=== PATIENT | male | born 2000 | race Two or more races ===

== ENCOUNTER 2021-09-22 11:52 | Emergency (ER) | payer OTHER, SELFPAY ==
[2021-09-22 11:54] VITALS: BP 120/79; PULSE 95; RESP 16; TEMP 37.2; O2SAT 93; BMI 17.4
--- NOTE | 2021-09-22 12:13 | EX.ED.DYSGE1 ---
HPI History of Present Illness Chief Complaint: Abn Labs Detail of Chief Complaint: Concern for low calcium Informant: patient Narrative Narrative: Patient presents to the emergency department with complaint of low calcium. Patient states that he had his calcium levels drawn 5 days ago and got his results today and was advised to come to the emergency department. Patient has history of hypothyroidism due to the fact that he has had a thyroidectomy secondary to thyroid cancer. Patient takes Calcitrol daily however over the summer he had been taking twice the dose that he is currently taking. Patient is from the country of [place] and sees an emergency medicine medical director there but is here for school and has no primary care physician locally. Patient complains of intermittent muscle cramping however after taking Calcitrol that seems to improve. Patient denies recent illness. Patient also on levothyroxine. Prior similar symptoms: Yes PFSH [facility] Medical History (Updated 09/22/21 @ 13:[address] Maury Jimenez, DO) Calcium deficiency Non-smoker Thyroid cancer Vitamin D deficiency Home Medications levothyroxine [Synthroid] 112.5 mcg PO DAILY 09/22/21 [History Last Taken Unknown] Allergy/AdvReac Type Severity Reaction Status Date / Time No Known Allergies Allergy Verified 09/22/21 11:54 Surgical History (Updated 09/22/21 @ 12:39 by Marco Gaitan) History of thyroidectomy Social History Smoking Status: Never smoker ROS [facility] ED Constitutional Constitutional ED: Reports systems reviewed and no addt'l complaints, except as documented; Denies body ache(s), change in weight or chills Eyes Eyes: Denies acute decrease in peripheral vision, change in vision, double vision or loss of vision ENT ENT ED: Reports none; Denies ear pain, lip swelling, loss taste/smell, neck pain, otalgia or sore throat Cardiovascular Cardiovascular: Reports none; Denies abdominal pain, chest pain with activity, leg edema, lightheadedness, palpitations, rapid heart rate or syncope Respiratory/Chest Respiratory/Chest: Reports none; Denies change in mental status, dry cough, dyspnea, hemoptysis, shortness of breath at rest or shortness of breath with exertion Gastrointestinal Gastrointestinal: Reports none; Denies abdominal pain, change in stool character, diarrhea, hematemesis, hematochezia, melena, rectal bleeding or vomiting Genitourinary Genitourinary ED: Reports none; Denies abdominal discomfort, anuria, dysuria, genital pain or polyuria Musculoskeletal Musculoskeletal: Reports none and other Details: Intermittent muscle cramping ; Denies arthralgias, back pain, difficulty walking, extremity pain, muscle weakness or myalgias Integumentary Reports none; Denies abscess or rash Neurologic Neurologic: Reports none; Denies abnormal gait, confusion, focal weakness, frequent falls, headache(s), loss of vision, numbness, paresthesias, radicular pain, vertigo or weakness Psychiatric Psychiatric: Reports systems reviewed and no addt'l complaints, except as documented and none; Denies behavioral changes, confusion, difficulty concentrating, hallucinations, suicidal ideation, tactile hallucinations or visual hallucinations Endocrine Endocrinology: Denies none, cold intolerance, excessive sweating, fatigue or heat intolerance Hematologic/Lymphatic Hematologic/Lymphatic: Reports none; Denies anemia, easy bleeding or easy bruising Allergic/Immunologic Allergic/Immunologic ED: Denies as per HPI, none, lip swelling, mouth swelling, throat swelling, tongue swelling or hives EXAM Physical Exam Const Vital Signs: 09/22/21 11:54 09/22/21 12:34 09/22/21 12:37 Temperature 98.9 F Temperature Source Temporal Pulse Rate 95 86 Respiratory Rate 16 16 Respiratory Effort Normal Respiratory Pattern Normal Blood Pressure 120/79 Blood Pressure Mean 92 Pulse Ox 93 98 Oxygen Delivery Method Room Air Room Air Positive well nourished and well developed General Appearance ED: well developed and NAD HEENT Reports TM's clear and moist mucous membranes HEENT Narrative: Patient has a old healed scar along the left side of the neck to the anterior portion of the neck from prior thyroidectomy. normocephalic and atraumatic; Negative for trauma or tenderness Tympanic Membrane ED: Yes TM's clear Eyes PERRL and EOMs intact bilaterally General Eye ED: Negative for pale conjunctiva or scleral icterus Neck no lymphadenopathy, supple and no JVD General: Negative for tenderness Chest Wall inspection of chest normal and palpation of chest normal Chest: Negative for tenderness Resp normal respiratory effort and clear to auscultation bilaterally Effort and Inspection: Negative for respiratory distress or pain with movement Auscultation: Negative for rhonchi, wheezes or diminished lung sounds Cardio regular rate, regular rhythm, S1 normal heart sound, S2 normal heart sound and no murmurs Peripheral Pulses: pulses 2+ throughout GI normal to inspection, nondistended, normoactive bowel sounds, soft to palpation, non-tender, non-distended and no masses Back/Spine no CVA tenderness and no thoracic nor lumbar tenderness Extremity normal to inspection General Extremety ED: Negative for edema General Extremity: Negative for edema Neuro oriented x3, CN's II-XII intact bilaterally, no sensory deficits noted and gait normal Sensorium / Orientation: awake, alert, oriented to person, oriented to place and oriented to time Motor Exam: strength 5/5 throughout and strength abnormal Psych mental status grossly normal Skin no rashes or lesions noted and no wounds MDM MDM MDM Narrative Medical decision making narrative: Patient's calcium level was 6.5 and it was 6.65 days ago. I did write for 2 g of calcium gluconate IV. Patient increase his oral Calcitrol to twice daily. I will refer to primary care physician business operations analyst for no doc as well as endocrinology for follow-up. Lab Data Attestation: I reviewed the patient's lab results. Labs: Laboratory Results - last 24 hr 09/22/21 12:25 Sodium 140 Potassium 3.9 Chloride 102 Carbon Dioxide 30.0 Anion Gap 8 BUN 7 Creatinine 0.78 Estim Creat Clear Calc 128.21 Est GFR (MDRD) Af Amer 163 Est GFR (MDRD) Non-Af 135 BUN/Creatinine Ratio 9.0 L Glucose 86 Calcium 6.5 L* Discharge Plan Triage Chief Complaint: Abn Labs ED Provider: Maury Jimenez Dx/Rx/DC Orders Clinical Impression: Hypocalcemia Instructions: ED Hypocalcemia (Adult) Prescriptions: No Action levothyroxine [Synthroid] 112 mcg Tablet 112.5 mcg PO DAILY RF: 0 Primary Care Provider: Care Physician,No Primary Referrals: Amarjit Feliz MD [STAFF PHYSICIAN] - 3-5 Days Carlos Armando MD [STAFF PHYSICIAN] - 3-5 Days Care Physician,No Primary [Primary Care Provider] - Activity Restrictions/Additional Instructions: Increase your Rocaltrol to twice daily. Disposition Disposition: Home, Self Care
[2021-09-22 12:34] VITALS: PULSE 86; RESP 16; O2SAT 98
[2021-09-22 12:48] LABS: Anion Gap 8 (5-15); BUN 7 mg/dL (7-18); Calcium,Total 6.5 mg/dL (8.5-10.1); Chloride 102 mmol/L (98-107); Creatinine, Serum 0.78 mg/dL (0.70-1.30); EST Glomerular Filtration Rate 135 mL/min (>60); Est Glom Filt Rate - Afr Amer 163 mL/min (>60); Estimated Creatinine Clearance 128.21 ml/min; Glucose 86 mg/dL (74-106); Potassium 3.9 mmol/L (3.5-5.1); Sodium Level 140 mmol/L (136-145)
[2021-09-22 13:36] VITALS: BP 130/80; PULSE 88; RESP 16; O2SAT 99
[2021-09-22 15:00] VITALS: BP 124/80; PULSE 77; RESP 18; O2SAT 98
[2021-09-22 15:55] VITALS: BP 122/70; PULSE 81; RESP 18; O2SAT 98
--- NOTE | 2021-09-22 15:57 | ED.RN ---
REVIEWED D/C INSTRUCTIONS, FOLLOW UP CARE, AND S/S THAT WOULD WARRANT A RETURN TO THE ED WITH PT. PT VERBALIZED AN UNDERSTANDING AND DENIES FURTHER QUESTIONS FOR THIS RN. PT SKIN P/W/D, RESP EVEN AND UNLABORED, PT A&O X 3, NO DISTRESS NOTED. PT AMBULATED OUT OF ED, GAIT STEADY.
== END 2021-09-22 16:00 | disposition home or self-care (01) ==
PROVIDERS: Emergency Provider Emergency Medicine
DX: E83.51 Hypocalcemia (principal); E89.0 Postprocedural hypothyroidism; Z79.890 Hormone replacement therapy; Z85.850 Personal history of malignant neoplasm of thyroid
CPT/HCPCS: 36415; 80048; 96365; 96366; 99284; A4216; J0610

== ENCOUNTER → 2021-10-04 16:22 | Outpatient (CLI) | payer OTHER, SELFPAY ==
[2021-10-04 18:38] LABS: Anion Gap 7 (5-15); BUN 8 mg/dL (7-18); BUN/Creat Ratio 8.6 RATIO (10-20); Chloride 104 mmol/L (98-107); Creatinine, Serum 0.93 mg/dL (0.70-1.30); EST Glomerular Filtration Rate 109 mL/min (>60); Est Glom Filt Rate - Afr Amer 132 mL/min (>60); Free T3 2.4 pg/mL (2.18-3.98); Glucose 79 mg/dL (74-106); Potassium 3.7 mmol/L (3.5-5.1); Sodium Level 141 mmol/L (136-145); Thyroid Stim Hormone (TSH) 1.79 uIU/mL (0.358-3.74)
[2021-10-07 13:27] LABS: PTHIN 2.1 pg/mL (18.4-80.1)
== END ==
PROVIDERS: PCP Family Medicine; Referring Provider Family Medicine; Visit Provider Family Medicine
DX: E03.9 Hypothyroidism, unspecified (principal); E83.51 Hypocalcemia
CPT/HCPCS: 36415; 80048; 83970; 84439; 84443; 84481

== ENCOUNTER → 2021-11-15 09:04 | Outpatient (CLI) | payer OTHER, SELFPAY ==
[2021-11-15 09:26] LABS: Absolute Lymphocyte Count 1.14 X10^3/uL (0.83-4.51); Absolute Neutrophil Count 3.3 X10^3/uL (2.0-7.7); Basophil# 0.06 X10^3/uL; Basophil% 1.2 % (0-1); Eosinophils% 1.9 % (0-5); Hematocrit 50.8 % (40-54); Hemoglobin 17.3 g/dL (13.0-16.5); Lymphocyte # 1.14 X10^3/ul (0.83-4.51); Lymphocyte % 21.9 % (19-41); Mean Corp Hgb Conc 34.1 g/dL (32-36); Mean Corpuscular Hgb 29.6 pg (27.0-32.0); Mean Corpuscular Volume 86.8 fL (80-94); Mean Platelet Vol. 9.5 fl (6.2-12.0); Monocyte# 0.54 X10^3/uL; Monocyte% 10.4 % (0-10); NRBC Flagged by Analyzer 0 % (0-5); Neutrophil # 3.34 X10^3/uL (2.7-7.7); Neutrophil % 64.2 % (47-70); Platelet Count 240 K/mm3 (150-450); RBC Distribution Width CV 12.4 % (11.6-14.6); RBC Distribution Width SD 39.2 fl (35.1-43.9); Red Blood Count 5.85 M/mm3 (4.6-6.2); White Blood Count 5.2 K/mm3 (4.4-11.0)
[2021-11-15 09:38] LABS: Erythrocyte Sedimentation Rate 2 mm/hr (0-20)
[2021-11-15 09:49] LABS: ALB/GLOB Ratio 1.3 RATIO (0.9-2.4); AST(SGOT) 17 U/L (15-37); Alanine Aminotransfer ALT/SGPT 20 U/L (16-61); Albumin, Serum 4.7 g/dL (3.2-5.0); Alkaline Phosphatase 43 U/L (45-117); Anion Gap 4 (5-15); BUN 8 mg/dL (7-18); BUN/Creat Ratio 9.3 RATIO (10-20); CRP < 2.90 mg/L (0.0-3.0); Calcium,Total 8.2 mg/dL (8.5-10.1); Chloride 106 mmol/L (98-107); Creatinine, Serum 0.86 mg/dL (0.70-1.30); EST Glomerular Filtration Rate 119 mL/min (>60); Est Glom Filt Rate - Afr Amer 144 mL/min (>60); Globulin 3.5 g/dL (2.2-4.2); Glucose 96 mg/dL (74-106); Potassium 3.9 mmol/L (3.5-5.1); Protein, Total 8.2 g/dL (6.4-8.2); Sodium Level 141 mmol/L (136-145)
[2021-11-15 10:16] LABS: PTHIN 2.2 pg/mL (18.4-80.1)
[2021-11-18 13:42] LABS: Gastrin, Serum 10 pg/mL (0-115)
== END ==
PROVIDERS: PCP Family Medicine; Referring Provider Internal Medicine Gastroenterology; Visit Provider Internal Medicine Gastroenterology
DX: C73 Malignant neoplasm of thyroid gland (principal); E89.2 Postprocedural hypoparathyroidism
CPT/HCPCS: 36415; 80053; 82941; 83970; 85025; 85652; 86140

== ENCOUNTER 2021-12-24 15:13 | Outpatient (CLI) | payer OTHER, SELFPAY | END 2021-12-24 23:59 | disposition short-term general hospital (02) | LOC: IMMUN 01-01 15:13 | PROVIDERS: Visit Provider Family Medicine | DX: Z23 Encounter for immunization (principal) ==

== ENCOUNTER 2022-01-09 16:30 | Outpatient (CLI) | payer OTHER, SELFPAY ==
--- NOTE | 2022-01-09 16:32 | CT_ITS ---
STUDY: CT SOFT TISSUE NECK WITH CONTRAST REASON FOR EXAM: Male, 21 years old. THYROID CARCINOMA RADIATION DOSAGE (If Supplied By Facility): CTDIvol = ( 9.47 ) mGy, DLP = ( 622.54 ) mGycm TECHNIQUE: The patient was scanned in a multi-detector CT scanner. High resolution transaxial imaging was performed following intravenous administration of IV 75mL Isovue-370. Sagittal and coronal images were reconstructed. Individualized dose optimization techniques were used for this CT. COMPARISON: None. FINDINGS: Likely postsurgical changes at the level of the thyroid gland with subtle narrowing of the subglottic airway and a air collection noted lateral to the trachea which joins the esophagus at the level of the aortic arch. Normal bilateral parotid glands. Normal bilateral custom studio coordinator spaces. Normal bilateral parapharyngeal spaces. Normal bilateral carotid spaces. Normal bilateral sublingual and submandibular glands and spaces. Normal visualized nasopharynx. Normal retropharyngeal space. Normal perivertebral space. Normal visualized bilateral faucial tonsils. The visualized tongue, tongue base and oropharynx are normal. The visualized cervical lymph nodes (levels I-) are within normal size limits, and maintain normal morphology. There is no demonstrated solid or cystic mass lesion. There is no abnormal contrast enhancement. Normal epiglottis, bilateral vallecula and hypopharynx. The pre-epiglottic and paraglottic adipose spaces are normal. Normal visualized bilateral piriform sinuses, aryepiglottic folds, vocal cords, and arytenoid-cricoid articulations. Normal subglottic trachea. There is been a previous thyroidectomy. Normal visualized pulmonary apices. Normal visualized paranasal sinuses. Normal visualized cervical spine. CT/Soft Tissue Neck WITH Contrast IMPRESSION: Postsurgical changes noted from thyroidectomy. No acute findings No suspicious enhancing lesion, no disruption of the fat planes, no suspicious adenopathy Electronically Signed: Pancho Mahan MD at 17:19 EST ,
--- NOTE | 2022-01-09 16:32 | CT_ITS ---
STUDY: CT CHEST WITH CONTRAST REASON FOR EXAM: Male, 21 years old. THYROID CARCINOMA RADIATION DOSAGE (If Supplied By Facility): CTDIvol = ( 9.47 ) mGy, DLP = ( 622.54 ) mGycm TECHNIQUE: Transaxial imaging was performed following intravenous administration of IV 75mL Isovue-370. Multiplanar coronal and sagittal images were reformatted. Individualized dose optimization techniques were used for this CT. COMPARISON: None. FINDINGS: There is soft tissue air lateral to the trachea but it appears to connect to the esophagus just above the level of the aortic arch. This may be related to patient''s thyroid surgery. The lungs are normal. There is no demonstrated pleural abnormality. Normal heart and pericardium. Normal mediastinum. Normal hilar regions. Normal enhanced pulmonary arteries. Normal aorta arch and descending thoracic aorta. Normal osseous structures. There is no demonstrated abnormality of the visualized upper abdomen. CT/Chest WITH Contrast IMPRESSION: No acute findings Air to the left of the trachea and the lower neck likely is from postsurgical change after thyroidectomy Electronically Signed: Pancho Mahan MD at 17:17 EST ,
== END 2022-01-09 23:59 | disposition home or self-care (01) ==
PROVIDERS: PCP Family Medicine; Visit Provider Internal Medicine
DX: C73 Malignant neoplasm of thyroid gland (principal)
CPT/HCPCS: 70491; 71260; Q9967

== ENCOUNTER 2022-01-16 15:24 | Outpatient (CLI) | payer OTHER, SELFPAY ==
--- NOTE | 2022-01-16 15:39 | MRI_ITS ---
STUDY: MRI CERVICAL SPINE WITH AND WITHOUT CONTRAST REASON FOR EXAM: Male, 21 years old. MEDUALLARY THYROID CARCINOMA, ELEVATED CALCITONIN TECHNIQUE: Standardized fat and water weighted pulse sequences were obtained in the sagittal and axial following administration of IV Yes YES. COMPARISON: None FINDINGS: Normal foramen magnum and brainstem-cervical cord junction. Normal cervical lordosis. Normal vertebral bodies and posterior osseous elements. C2-3: Normal endplates. Normal disc height, signal and morphology. Normal central canal and intervertebral neural foramina. C3-4: Normal endplates. Normal disc height, signal and morphology. Normal central canal and intervertebral neural foramina. C4-5: Normal endplates. Normal disc height, signal and morphology. Normal central canal and intervertebral neural foramina. C5-6: Normal endplates. Normal disc height, signal and morphology. Normal central canal and intervertebral neural foramina. C6-7: Normal endplates. Normal disc height, signal and morphology. Normal central canal and intervertebral neural foramina. C7-T1: Normal endplates. Normal disc height, signal and morphology. Normal central canal and intervertebral neural foramina. Normal cervical cord. MRI/Spine Cervical W/WO Contrast IMPRESSION: Unremarkable unenhanced and enhanced MR examination of the cervical spine. Electronically Signed: Faith Gil MD at 10:30 [facility] ,
--- NOTE | 2022-01-16 15:40 | MRI_ITS ---
EXAM: MR PELVIS WITHOUT AND WITH INTRAVENOUS CONTRAST CLINICAL INDICATION: MEDUALLARY THYROID CARCINOMA, ELEVATED CALCITONIN TECHNIQUE: Multiplanar and multisequence MR images of the pelvis without and with intravenous contrast. This report was created using [employer] report [email or web address] technology. CONTRAST: IV 13 CC DOTAREM COMPARISON: None. FINDINGS: BOWEL: No inflammatory or obstructive changes of bowel. APPENDIX: No evidence of acute appendicitis. INTRAPERITONEAL SPACE: No free fluid. No free pelvic fluid. BLADDER: Bladder is unremarkable. REPRODUCTIVE: Unremarkable as visualized. No mass. BONES/JOINTS: Visualized spine is unremarkable. No suspicious lytic or blastic abnormality. SOFT TISSUES: Muscles are normal. No pelvic wall hernia. LYMPH NODES: No adenopathy. OTHER FINDINGS: No concerning marrow signal alterations. No other significant pathology. MRI/Pelvis W/WO Contrast IMPRESSION: No evidence for adenopathy or neoplasm. Electronically Signed: Byron Smalls MD at 4:50 EST ,
--- NOTE | 2022-01-16 15:41 | MRI_ITS ---
EXAM: MR ABDOMEN WITHOUT AND WITH INTRAVENOUS CONTRAST CLINICAL INDICATION: MEDUALLARY THYROID CARCINOMA, ELEVATED CALCITONIN TECHNIQUE: Multiplanar and multisequence MR images of the abdomen without and with intravenous contrast. This report was created using [employer] report [employer] technology. CONTRAST: 13ML IV DOTAREM COMPARISON: None. FINDINGS: LOWER THORAX: Unremarkable. No pleural effusion. LIVER: No liver lesions. GALLBLADDER AND BILE DUCTS: Unremarkable. No gallstones. No gallbladder distention or wall edema. No intra- or extrahepatic biliary ductal dilation. PANCREAS: No pancreatic masses. SPLEEN: Unremarkable. Normal size without focal cystic or solid mass. ADRENALS: No adrenal masses. KIDNEYS AND URETERS: Kidneys are unremarkable. Normal renal size and position. No hydronephrosis. STOMACH AND BOWEL: No inflammatory changes of bowel or bowel obstruction. INTRAPERITONEAL SPACE: No free air or free fluid. VASCULATURE: Unremarkable. Abdominal aorta is non-dilated. LYMPH NODES: No adenopathy. OTHER FINDINGS: No unusual enhancement. MRI/MRI Abd WITH and W/O Contrast IMPRESSION: No evidence for adenopathy or neoplasm. Electronically Signed: Byron Smalls MD at 4:48 EST ,
== END 2022-01-16 23:59 | disposition home or self-care (01) ==
PROVIDERS: Visit Provider Internal Medicine
DX: C73 Malignant neoplasm of thyroid gland (principal)
CPT/HCPCS: 72156; 72197; 74183; A9575

== ENCOUNTER 2022-01-21 15:27 | Outpatient (CLI) | payer OTHER, SELFPAY ==
--- NOTE | 2022-01-21 15:42 | MRI_ITS ---
STUDY: MRI LUMBAR SPINE WITH AND WITHOUT CONTRAST REASON FOR EXAM: Male, 21 years old. THYROID CARCINOMA TECHNIQUE: Standardized fat and water weighted pulse sequences were obtained in the sagittal and axial planes. IV yes yes was administered for the contrast portion of the examination. COMPARISON: 01/16/2022 FINDINGS: T12-L1: Normal endplates. Normal disc height, hydration and morphology. Normal bilateral facet joints. Normal central canal and bilateral lateral recesses. Normal bilateral intervertebral neural foramina. Normal lumbar lordosis. There is no substantial scoliosis. Normal conus medullaris that terminates at the L1 level. L1-2: Normal endplates. Normal disc height, hydration and morphology. Normal bilateral facet joints. Normal central canal and bilateral lateral recesses. Normal bilateral intervertebral neural foramina. L2-3: Normal endplates. Normal disc height, hydration and morphology. Normal bilateral facet joints. Normal central canal and bilateral lateral recesses. Normal bilateral intervertebral neural foramina. L3-4: Normal endplates. Normal disc height, hydration and morphology. Normal bilateral facet joints. Normal central canal and bilateral lateral recesses. Normal bilateral intervertebral neural foramina. L4-5: Normal endplates. Normal disc height, hydration and morphology. Normal bilateral facet joints. Normal central canal and bilateral lateral recesses. Normal bilateral intervertebral neural foramina. L5-S1: Normal endplates. Small broad-based disc bulge. Normal bilateral facet joints. Normal central canal and bilateral lateral recesses. Normal bilateral intervertebral neural foramina. 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 Normal visualized paraspinous soft tissue structures. 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 There is no evidence of metastatic disease in the lumbar spine. Electronically Signed: Smita Ogden MD at 4:08 EST ,
--- NOTE | 2022-01-21 15:42 | MRI_ITS ---
STUDY: MRI BRAIN WITH AND WITHOUT CONTRAST REASON FOR EXAM: Male, 21 years old. THYROID CARCINOMA WITH ELEVATED CALCITONIN TECHNIQUE: Standardized multiplanar fat and water weighted pulse sequences were obtained. IV dotarem 13ml was administered for the contrast portion of the examination. COMPARISON: None. FINDINGS: Normal size of the ventricles and extra-axial spaces for the patient''s age. Normal white matter tracts of the supratentorial brain. Normal bilateral basal ganglia. Normal thalami. There is no extra-axial fluid accumulation. Normal flow voids within the major intracranial circulation suggesting patency by spin echo criteria. Normal venous enhancement. There is no enhancing intra-axial or extra-axial abnormality. Normal sella turcica, pituitary gland, infundibular stalk, optic chiasm and hypothalamus. Normal tectal plate and pineal gland. Normal midbrain, yonis and medulla. Normal cerebellum. Normal basal cisterns. Normal bilateral temporal bones. Normal bilateral internal auditory canals. No demonstrated orbital abnormality, within the constraints of a routine brain study. Normal visualized paranasal sinuses. Normal calvarium and skull base. Normal visualized soft tissue structures. Normal visualized upper cervical spine. MRI/Brain W/WO Contrast IMPRESSION: Normal unenhanced and enhanced MRI of the brain. Electronically Signed: Smita Ogden MD at 7:30 EST ,
--- NOTE | 2022-01-21 15:42 | MRI_ITS ---
STUDY: MRI THORACIC SPINE WITH AND WITHOUT CONTRAST REASON FOR EXAM: Male, 21 years old. THYROID CARCINOMA TECHNIQUE: IV dotarem 13ml was administered for the contrast portion of the examination. COMPARISON: 01/09/2022 FINDINGS: Normal kyphosis of the thoracic spine. There is no substantial scoliosis. T1-2, T2-3, T3-4, T4-5, T5-6, T6-7, T7-8, T8-9, T9-10, T10-11, T11-12: Normal endplates. Normal disc hydration, heights and morphology of the corresponding intervertebral discs. Normal central canal and intervertebral neural foramina at the corresponding levels. Normal visualized thoracic cord. 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 The soft tissue structures are unremarkable. There is no enhancing abnormality. MRI/Spine Thoracic W/WO Contrast IMPRESSION: No evidence of metastatic lesions in thoracic spine the thoracic spine. Electronically Signed: Smita Ogden MD at 1:40 EST ,
== END 2022-01-21 23:59 | disposition home or self-care (01) ==
PROVIDERS: Visit Provider Internal Medicine
DX: C73 Malignant neoplasm of thyroid gland (principal)
CPT/HCPCS: 70553; 72157; 72158; A9575

== ENCOUNTER 2022-03-10 07:59 | Outpatient (CLI) | payer OTHER, SELFPAY | END 2022-03-10 23:59 | disposition home or self-care (01) | LOC: EN 07:59 | PROVIDERS: Visit Provider Internal Medicine Gastroenterology | DX: Z53.9 Procedure and treatment not carried out, unspecified reason (principal) ==

== ENCOUNTER → 2022-03-27 | Outpatient (CLI) | payer OTHER, SELFPAY ==
[2022-03-27 17:14] LABS: Absolute Lymphocyte Count 0.92 X10^3/uL (0.83-4.51); Absolute Neutrophil Count 5.4 X10^3/uL (2.0-7.7); Basophil# 0.08 X10^3/uL; Basophil% 1.1 % (0-1); Eosinophil# 0.06 X10^3/uL; Eosinophils% 0.8 % (0-5); Hematocrit 50.7 % (40-54); Hemoglobin 17.5 g/dL (13.0-16.5); Lymphocyte # 0.92 X10^3/ul (0.83-4.51); Lymphocyte % 12.7 % (19-41); Mean Corp Hgb Conc 34.5 g/dL (32-36); Mean Corpuscular Hgb 30.9 pg (27.0-32.0); Mean Corpuscular Volume 89.4 fL (80-94); Mean Platelet Vol. 9.8 fl (6.2-12.0); Monocyte# 0.78 X10^3/uL; Monocyte% 10.7 % (0-10); NRBC Flagged by Analyzer 0 % (0-5); Neutrophil % 74.3 % (47-70); Platelet Count 260 K/mm3 (150-450); RBC Distribution Width CV 12.7 % (11.6-14.6); RBC Distribution Width SD 41.4 fl (35.1-43.9); Red Blood Count 5.67 M/mm3 (4.6-6.2); White Blood Count 7.3 K/mm3 (4.4-11.0)
[2022-03-27 17:36] LABS: Erythrocyte Sedimentation Rate < 1 mm/hr (0-20)
[2022-03-27 17:55] LABS: ALB/GLOB Ratio 1.5 RATIO (0.9-2.4); AST(SGOT) 64 U/L (15-37); Alanine Aminotransfer ALT/SGPT 38 U/L (16-61); Albumin, Serum 4.7 g/dL (3.2-5.0); Alkaline Phosphatase 39 U/L (45-117); Anion Gap 7 (5-15); BUN 8 mg/dL (7-18); BUN/Creat Ratio 10.1 RATIO (10-20); CRP < 2.90 mg/L (0.0-3.0); Calcium,Total 7.1 mg/dL (8.5-10.1); Chloride 103 mmol/L (98-107); Creatinine, Serum 0.79 mg/dL (0.70-1.30); EST Glomerular Filtration Rate 131 mL/min (>60); Est Glom Filt Rate - Afr Amer 158 mL/min (>60); Globulin 3.1 g/dL (2.2-4.2); Glucose 97 mg/dL (74-106); LDH 250 U/L (87-241); Potassium 3.7 mmol/L (3.5-5.1); Protein, Total 7.8 g/dL (6.4-8.2); Sodium Level 139 mmol/L (136-145); Thyroid Stim Hormone (TSH) 2.99 uIU/mL (0.358-3.74)
[2022-03-29 08:10] LABS: HEPATITIS B SURFACE AG Negative (Negative); Hepatitis A IgM Antibody Negative (Negative); Hepatitis B Core AB IgM Negative (Negative)
[2022-03-29 09:40] LABS: Hep C Antibodies 0.1 s/co ratio (0.0-0.9)
[2022-03-31 15:10] LABS: Anti-Centromere B Ab <0.2 AI (0.0-0.9); Anti-Chromatin <0.2 AI (0.0-0.9); Anti-Jo <0.2 AI (0.0-0.9); Anti-Scleroderma-70 AB <0.2 AI (0.0-0.9); RNP Ab 0.2 AI (0.0-0.9); SJOGREN'S Anti-SS-A test < 0.2 AI (0.0-0.9); SJOGREN'S Anti-SS-B test < 0.2 AI (0.0-0.9); Smith Ab <0.2 AI (0.0-0.9)
[2022-03-31 16:03] LABS: Anti-dsDNA Ab <1 IU/mL (0-9)
[2022-04-06 04:06] LABS: Albumin 4.6 g/dL (2.9-4.4); Alpha-1-Globulins 0.3 g/dL (0.0-0.4); Alpha-2-Globulins 0.5 g/dL (0.4-1.0); Endomysial Antibody IgA Negative (Negative); Gamma Globulin 1.1 g/dL (0.4-1.8); Immunoglobulin A 231 mg/dL (90-386); Immunoglobulin E 636 IU/mL (6-495); Immunoglobulin G 1047 mg/dL (603-1613); Immunoglobulin M 64 mg/dL (20-172); PROEL- TOTAL PROTEIN 7.5 g/dL (6.0-8.5)
[2022-04-07 12:49] LABS: Angiotensin Convert Enzyme 49 U/L (14-82); Cytoplasmic Ab (C-ANCA) <1:20 titer (Neg:<1:20); Perinuclear Ab (P-ANCA) <1:20 titer (Neg:<1:20); t-Transglutaminase IgA <2 U/mL (0-3)
== END | disposition home or self-care (01) ==
LOC: LAB 15:46
PROVIDERS: Internal Medicine Gastroenterology; Referring Provider Internal Medicine; Visit Provider Internal Medicine
DX: C73 Malignant neoplasm of thyroid gland (principal); R14.0 Abdominal distension (gaseous); D63.0 Anemia in neoplastic disease; K92.2 Gastrointestinal hemorrhage, unspecified; R79.89 Other specified abnormal findings of blood chemistry; R19.7 Diarrhea, unspecified
CPT/HCPCS: 36415; 80053; 80074; 82164; 82784; 82785; 83516; 83615; 84165; 84443; 85025; 85652; 86140; 86225; 86235; 86255; 86256; 86334

== ENCOUNTER → 2022-03-28 | Outpatient (CLI) | payer OTHER, SELFPAY ==
[2022-04-04 08:41] LABS: Giardia Lamblia, Stool EIA Negative (Negative); Pancreatic Elastase, Fecal > 500 (>200)
== END | disposition home or self-care (01) ==
LOC: LAB 12:45
PROVIDERS: Referring Provider Internal Medicine Gastroenterology; Visit Provider Internal Medicine Gastroenterology
DX: R19.7 Diarrhea, unspecified (principal)
CPT/HCPCS: 82653; 83630; 83993; 87177; 87209; 87329; 87493; 87506

== ENCOUNTER → 2022-04-11 | Outpatient (CLI) | payer OTHER, SELFPAY ==
--- NOTE | 2022-04-11 08:51 | US_ITS ---
STUDY: ABDOMINAL ULTRASOUND - ELASTOGRAPHY REASON FOR VISIT: Male, 21 years old. History of gastrointestinal hemorrhage. Abnormal liver function tests. TECHNIQUE: Liver stiffness measurements were obtained on a [employer] RS 85 ultrasound machine using a CA 1-7 probe following the SRU guidelines. 3 measurements were obtained using a 2-D-SWE method. The IQR/M was 12% suggesting a quality data set. TECHNICAL QUALITY: Adequate. COMPARISON: Comparison is made with prior study done earlier in the day. FINDINGS: Liver: Hepatomegaly. Median liver stiffness measured 4.9 kPa. US/Elastography Parenchyma/Organ IMPRESSION: Liver stiffness measures 4.9 kPa compatible with F0-F1 (Normal to mild liver fibrosis) Metavir score. Electronically Signed: Honorio Maxwell MD at 10:34 EDT ,
--- NOTE | 2022-04-11 08:51 | US_ITS ---
STUDY: ABDOMINAL ULTRASOUND - RIGHT UPPER QUADRANT REASON FOR VISIT: Male, 21 years old elevated lft -- gastro hemorrhage . History of thyroid cancer. TECHNIQUE: Ultrasound evaluation of the right upper quadrant was performed with real-time and static rodriguez-scale imaging. TECHNICAL QUALITY: Adequate. COMPARISON: None. FINDINGS: Liver: The liver is enlarged and measures 18.5 cm. There is normal echogenicity of the liver. The bile ducts are within normal limits. There is hepatic color flow. The direction of portal flow is hepatopetal. There is no demonstrated mass lesion. Gallbladder: Normal distended gallbladder. The gallbladder wall measures 1.5 mm. There is a negative sonographic Schwartz''s sign. There is no pericholecystic fluid. There are no gallstones. Common Bile Duct (C.B.D.): The common bile duct measures 3.0 mm. Pancreas: Normal size of the head, body and tail of the pancreas. There is normal echogenicity of the pancreas. There is no demonstrated pancreatic mass or cyst. Right Kidney: Normal size of the right kidney. The right kidney measures 11.7 cm x 5.7 cm x 6.8 cm. Normal renal cortex. The right cortex measures 2.0 cm. There is no demonstrated renal mass or cyst. There is no right hydronephrosis. US/Abdomen Limited IMPRESSION: Hepatomegaly. Electronically Signed: Honorio Maxwell MD at 10:32 EDT ,
== END | disposition home or self-care (01) ==
LOC: US 08:50
PROVIDERS: Referring Provider Internal Medicine Gastroenterology; Visit Provider Internal Medicine Gastroenterology
DX: K92.2 Gastrointestinal hemorrhage, unspecified (principal); R79.89 Other specified abnormal findings of blood chemistry
CPT/HCPCS: 76705; 76981

== ENCOUNTER → 2022-05-31 | Outpatient (CLI) | payer OTHER, SELFPAY ==
[2022-05-31 11:37] LABS: Absolute Neutrophil Count 4.4 X10^3/uL (2.0-7.7); Basophil# 0.08 X10^3/uL; Basophil% 1.3 % (0-1); Eosinophil# 0.08 X10^3/uL; Eosinophils% 1.3 % (0-5); Hematocrit 48.7 % (40-54); Hemoglobin 17.4 g/dL (13.0-16.5); Lymphocyte % 15.1 % (19-41); Mean Corp Hgb Conc 35.7 g/dL (32-36); Mean Corpuscular Volume 86.8 fL (80-94); Mean Platelet Vol. 10.1 fl (6.2-12.0); Monocyte# 0.53 X10^3/uL; Monocyte% 8.9 % (0-10); NRBC Flagged by Analyzer 0 % (0-5); Neutrophil # 4.35 X10^3/uL (2.7-7.7); Neutrophil % 73.1 % (47-70); Platelet Count 258 K/mm3 (150-450); RBC Distribution Width CV 12.8 % (11.6-14.6); RBC Distribution Width SD 40.3 fl (35.1-43.9); Red Blood Count 5.61 M/mm3 (4.6-6.2)
[2022-05-31 11:56] LABS: CPK Total, Creatine Kinase 75 U/L (39-308); CRP < 2.90 mg/L (0.0-3.0); LDH 179 U/L (87-241)
[2022-05-31 12:03] LABS: Erythrocyte Sedimentation Rate < 1 mm/hr (0-20)
[2022-06-02 08:35] LABS: HIV - WCH Non-Reactive (Nonreactive)
[2022-06-06 00:08] LABS: Immunoglobulin A 226 mg/dL (90-386); Immunoglobulin E 1646 IU/mL (6-495); Immunoglobulin G 978 mg/dL (603-1613)
[2022-06-10 13:58] LABS: Immunoglobulin M 62 mg/dL (20-172)
== END | disposition home or self-care (01) ==
PROVIDERS: Referring Provider Internal Medicine Gastroenterology; Visit Provider Internal Medicine Gastroenterology
DX: R14.0 Abdominal distension (gaseous) (principal); R19.7 Diarrhea, unspecified; R79.89 Other specified abnormal findings of blood chemistry
CPT/HCPCS: 36415; 82550; 82784; 82785; 83615; 85025; 85652; 86140; 86703

== ENCOUNTER → 2022-06-03 | Outpatient (CLI) | payer OTHER, SELFPAY ==
[2022-06-05 15:16] LABS: Calprotectin, Stool <16 ug/g (0-120)
[2022-06-10 13:59] LABS: Giardia Lamblia, Stool EIA Negative (Negative); Pancreatic Elastase, Fecal 397 (>200)
== END | disposition home or self-care (01) ==
LOC: LAB 06:52 → LABSPEC 07:00
PROVIDERS: Visit Provider Internal Medicine Gastroenterology
DX: R19.7 Diarrhea, unspecified (principal); R14.0 Abdominal distension (gaseous); K58.9 Irritable bowel syndrome, unspecified
CPT/HCPCS: 82653; 83630; 83993; 87177; 87209; 87329; 87493; 87506

== ENCOUNTER → 2022-11-27 | Outpatient (CLI) | payer OTHER, SELFPAY ==
[2022-11-27 12:12] LABS: T4 Free Direct 0.93 ng/dL (0.76-1.46)
== END | disposition home or self-care (01) ==
LOC: LAB 11:12
PROVIDERS: Visit Provider Internal Medicine
DX: C73 Malignant neoplasm of thyroid gland (principal)
CPT/HCPCS: 36415; 84439; 84443

== ENCOUNTER 2023-04-18 14:38 | Emergency (ER) | payer OTHER, SELFPAY ==
[2023-04-18 14:39] VITALS: BP 104/79; PULSE 105; RESP 16; TEMP 36.6; O2SAT 99
--- NOTE | 2023-04-18 14:59 | EKG12_ITS ---
Test Reason : ABNORMAL LAB Blood Pressure : / mmHG Vent. Rate : 093 BPM Atrial Rate : 093 BPM P-R Int : 130 ms QRS Dur : 092 ms QT Int : 372 ms P-R-T Axes : 077 033 -07 degrees QTc Int : 462 ms Normal sinus rhythm Nonspecific T wave abnormality Abnormal ECG Confirmed by ELDER SINGH, LISA ([id number]), web content editor BRANDON FERNANDEZ ([id number]) on 04/20/2023 11:21:20 AM Referred By: Confirmed By:LISA FRIEDMAN MD
--- NOTE | 2023-04-18 15:02 | EDS_ITS ---
HPI History of Present Illness Chief Complaint: Abn Labs Informant: patient Narrative Narrative: Patient presents to the ED after being called for abnormal labs obtained 2 days ago. History of medullary thyroid carcinoma total thyroidectomy 8 years ago in [place]. He is on levothyroxine 125 he is on Calcitrol he is on vitamin D. He states will get his blood work drawn every 6 months. He has a new doctor, had blood work drawn and was told is low. On his phone ionized calcium 0.77. He states he has chronically been low since his surgery he has not been symptomatic he has continue his medicines and did not think anything of it. Denies any muscle cramping any paresthesia is any palpitations or weakness. Labs were reviewed on his phone through [employer] with calcium being 0.77. He had a normal T3, normal vitamin D levels in range. [facility] Medical History Calcium deficiency Diarrhea Hormone deficiency Medullary thyroid carcinoma Non-smoker Parathyroid dysfunction Postsurgical hypoparathyroidism Thyroid cancer Vitamin D deficiency Home Medications levothyroxine 100 mcg tablet 100 mcg PO DAILY #90 tabs 01/02/22 [Rx Last Taken Unknown] calcitriol 0.5 mcg capsule 0.5 mcg PO BID #180 caps 07/04/22 [Rx Last Taken Unknown] Allergy/AdvReac Type Severity Reaction Status Date / Time No Known Allergies Allergy Verified 04/18/23 14:41 Surgical History History of thyroidectomy Social History Smoking Status: Never smoker alcohol intake: current alcohol intake frequency: 0-2 drinks per day substance use type: does not use what type of physical activity do you participate in: none ROS ROS ED Constitutional Constitutional ED: Denies chills, fever(s) or sweats Eyes Eyes: Denies change in vision ENT ENT ED: Denies dysphagia or sore throat Cardiovascular Cardiovascular: Denies chest pain, leg edema, palpitations or racing heartbeat Respiratory/Chest Respiratory/Chest: Denies cough, dyspnea or dyspnea on exertion Gastrointestinal Gastrointestinal: Denies abdominal pain, diarrhea, nausea or vomiting Genitourinary Genitourinary ED: Denies dysuria, hematuria or urinary frequency Musculoskeletal Musculoskeletal: Denies back pain, extremity pain or neck pain Integumentary Denies rash or wounds Neurologic Neurologic: Denies headache(s), paresthesias or weakness EXAM Physical Exam Const Vital Signs: 04/18/23 14:39 04/18/23 15:28 04/18/23 17:08 Temperature 98 F Temperature Source Temporal Pulse Rate 105 H Respiratory Rate 16 Respiratory Effort Normal Non-Labored Respiratory Pattern Normal Blood Pressure 104/79 Blood Pressure Mean 87 Pulse Ox 99 Oxygen Delivery Method Room Air Room Air Positive well nourished and well developed General Appearance ED: well developed and NAD HEENT Reports moist mucous membranes normocephalic and atraumatic Eyes PERRL, EOMs intact bilaterally and conjunctivae normal General Eye ED: Yes normal appearance of both eyes Neck no lymphadenopathy and supple General: Negative for tenderness Chest Wall Chest: Negative for tenderness Resp normal respiratory effort and normal air movement Effort and Inspection: symmetric chest movement; Negative for respiratory distress Cardio regular rate, regular rhythm and no murmurs Peripheral Pulses: pulses 2+ throughout GI normal to inspection, nondistended, normoactive bowel sounds and non-tender Palpation: Negative for guarding or rebound tenderness present Back/Spine no CVA tenderness and no thoracic nor lumbar tenderness Extremity normal to inspection General Extremety ED: Negative for edema or tenderness General Extremity: Negative for edema Neuro oriented x3, CN's II-XII intact bilaterally and no sensory deficits noted Neuro Narrative: Negative Chovstek's sign Sensorium / Orientation: awake and alert Skin no rashes or lesions noted and no wounds MDM MDM MDM Narrative Medical decision making narrative: Interventions / MDM: Differential diagnosis: Electrolyte abnormalities Diagnosis considered but do not suspect: N/A My EKG interpretation: EKG: Sinus rate of 93, no ST changes, T wave inversions 3 and aVF, QTc 462. Imaging independently reviewed and interpreted by myself: N/A External documents reviewed: N/A Test considered but not ordered:N/A ED course: Patient known hypocalcemia currently asymptomatic. EKG with no changes added magnesium levels for evaluation also normal. Calcium returned at 6.1 ionized calcium is a send out and pending. Similar events 2 years ago had a calcium of 6.5 he is given 2 g of calcium IV. Discussed with him this will be ordered to assist with his hypocalcemia. Is on Calcitrol, he is starting calcium supplements. Reviewing up-to-date recommendations, this can be started with 1 or the other. He would like to use supplements. He ordered for 1100 units, discussed using this twice a day to help with supplementation. I offered endocrinology follow-up which he states he did see 1 last couple years ago he had a whole new work-up for cancer concerns and did not want to follow-up with yimi lemos. He will follow-up with his current PCP. All questions were answered. Re-evaluation: stable Disposition discussed with patient/family/significant other: Patient Case discussed with consulting clinician: N/A Lab Data Attestation: I reviewed the patient's lab results. Labs: Laboratory Results - last 24 hr 04/18/23 15:23 Sodium 144 Potassium 3.6 Chloride 107 Carbon Dioxide 28.0 Anion Gap 9 BUN 8 Creatinine 0.77 Estim Creat Clear Calc 146.75 Est GFR (MDRD) Af Amer 162 Est GFR (MDRD) Non-Af 134 BUN/Creatinine Ratio 10.4 Glucose 123 H Calcium 6.1 L* Magnesium 1.9 Discharge Plan Triage Chief Complaint: Abn Labs ED Provider: Camilo Suarez Dx/Rx/DC Orders Clinical Impression: Hypocalcemia, History of total thyroidectomy Instructions: Hypocalcemia Dc Prescriptions: No Action levothyroxine 100 mcg tablet 100 mcg PO DAILY Qty: 90 1RF calcitriol 0.5 mcg capsule 0.5 mcg PO BID Qty: 180 1RF Primary Care Provider: Care Physician,No Primary Referrals: Care Physician,No Primary [Primary Care Provider] - Activity Restrictions/Additional Instructions: Calcium 6.1 in the labs, ionized calcium pending. Status post 2 g of IV calcium. Start using your calcium supplements you report 1100 units take twice a day. Follow-up with your doctor for outpatient evaluation And continued management. Disposition Disposition: Home, Self Care Discharge Date/Time: 04/18/23 18:20
[2023-04-18 15:58] LABS: Anion Gap 9 (5-15); BUN 8 mg/dL (7-18); BUN/Creat Ratio 10.4 RATIO (10-20); Calcium,Total 6.1 mg/dL (8.5-10.1); Chloride 107 mmol/L (98-107); Creatinine, Serum 0.77 mg/dL (0.70-1.30); EST Glomerular Filtration Rate 134 mL/min (>60); Est Glom Filt Rate - Afr Amer 162 mL/min (>60); Estimated Creatinine Clearance 146.75 ml/min; Glucose 123 mg/dL (74-106); Magnesium 1.9 mg/dL (1.6-2.6); Potassium 3.6 mmol/L (3.5-5.1); Sodium Level 144 mmol/L (136-145)
== END 2023-04-18 18:20 | disposition home or self-care (01) ==
PROVIDERS: Emergency Provider Emergency Medicine; Visit Provider Emergency Medicine
DX: E83.51 Hypocalcemia (principal); Z85.850 Personal history of malignant neoplasm of thyroid; E89.0 Postprocedural hypothyroidism; Z79.890 Hormone replacement therapy
CPT/HCPCS: 80048; 82330; 83735; 93005; 96365; 96366; 99282; A4216; J0612